=== PATIENT | male | born 1990 | race American Indian/Alaskan Native ===

== ENCOUNTER 2020-06-25 13:13 | Emergency (ER) | payer SELFPAY ==
[2020-06-25 13:28] VITALS: BP 106/70
--- NOTE | 2020-06-25 14:41 | Emergency Department Report ---
ED Male HPI - General Chief complaint: Abdominal Pain Stated complaint: ABD PAIN Time Seen by Provider: 06/25/20 13:57 Source: patient Mode of arrival: Ambulatory Limitations: No Limitations - History of Present Illness Initial comments: Patient is a 29-year-old male presents emergency room with complaints of left testicular pain and swelling that began 3 days ago. He has associated dysuria and some mild lower abdominal discomfort. Patient states that he was sexually active without protection. He states that he went to visit his family in [place] and while he was there he had relations with someone he has had intercourse with in the past. He states that previously this person has given him an STD in the past. He states he previously had gonorrhea/chlamydia and had the same symptoms at that time which caused testicular pain and swelling. He denies any fever, nausea, vomiting, diarrhea, urinary retention, penile discharge, hematuria. No other past medical history. No allergies to medications. - Related Data Previous Rx's Medication Instructions Recorded Last Taken Type Doxycycline Hyclate [Doxycycline 100 mg PO BID 7 Days #14 tablet 06/25/20 Unknown Rx Hyclate TAB] Allergies Allergy/AdvReac Type Severity Reaction Status Date / Time No Known Allergies Allergy Unverified 06/25/20 13:28 ED Review of Systems ROS: Stated complaint: ABD PAIN Other details as noted in HPI Comment: All other systems reviewed and negative ED Past Medical Hx - Past Medical History Previous Medical History?: No - Surgical History Past Surgical History?: No - Social History Smoking Status: Never Smoker Substance Use Type: Alcohol - Medications Home Medications: Home Medications Medication Instructions Recorded Confirmed Last Taken Type Doxycycline Hyclate [Doxycycline 100 mg PO BID 7 Days #14 tablet 06/25/20 Unknown Rx Hyclate TAB] ED Physical Exam - General Limitations: No Limitations General appearance: alert, in no apparent distress - Head Head exam: Present: atraumatic, normocephalic - Eye Eye exam: Present: normal appearance - ENT ENT exam: Present: mucous membranes moist - Respiratory Respiratory exam: Present: normal lung sounds bilaterally. Absent: respiratory distress, wheezes, rales, rhonchi, stridor, chest wall tenderness, accessory muscle use, decreased breath sounds, prolonged expiratory - Cardiovascular Cardiovascular Exam: Present: regular rate, normal rhythm, normal heart sounds. Absent: systolic murmur, diastolic murmur, rubs, gallop - GI/Abdominal GI/Abdominal exam: Present: soft, normal bowel sounds. Absent: distended, tenderness, guarding, rebound, rigid - exam: Present: other (field gauger: adri davis, left sided testicular and epididymal ttp and edema, no lesions or blister, normal cremasteric reflex, normal testicular lie, no high riding of the testicle, left sided inguinal LAD) - Neurological Exam Neurological exam: Present: alert, oriented X3 - Psychiatric Psychiatric exam: Present: normal affect, normal mood - Skin Skin exam: Present: warm, dry, intact ED Course Vital Signs 06/25/20 13:26 Temperature 99.9 F H Pulse Rate 81 Respiratory 18 Rate Blood Pressure 106/70 O2 Sat by Pulse 97 Oximetry ED Medical Decision Making - Medical Decision Making Patient is a 29-year-old male presents emergency room with complaints of left testicular pain and swelling that began 3 days ago. He has associated dysuria and some mild lower abdominal discomfort. Patient states that he was sexually active without protection. He states that he went to visit his family in [place] and while he was there he had relations with someone he has had intercourse with in the past. He states that previously this person has given him an STD in the past. He states he previously had gonorrhea/chlamydia and had the same symptoms at that time which caused testicular pain and swelling. He denies any fever, nausea, vomiting, diarrhea, urinary retention, penile discharge, hematuria. No other past medical history. No allergies to medications. Vitals are stable. On exam:field gauger: adri davis, left sided testicular and epididymal ttp and edema, no lesions or blister, normal cremasteric reflex, normal testicular lie, no high riding of the testicle, left sided inguinal LAD. Examination appears consistent with left-sided epididymoorchitis likely secondary to STD, No signs of testicular torsion, scrotal cellulitis, abscess at this time. Patient given ceftriaxone while in the emergency department, given prescription for doxycycline. Will be referred to urology. Patient be referred to primary care/clinic for full STD panel. Discuss strict return precautions in detail with patient. Advised patient Please take medication as prescribed. Please have any partner tested and treated as well. Avoid sexual intercourse. Please follow- up with the health department or clinic in order to have a full STD panel. Please have any partner tested and treated as well. Return to emergency room for new or worsening symptoms. Critical care attestation.: If time is entered above; I have spent that time in minutes in the direct care of this critically ill patient, excluding procedure time. ED Disposition Clinical Impression: Epididymo-orchitis Disposition: - TO HOME OR SELFCARE Is pt being admited?: No Does the pt Need Aspirin: No Condition: Stable Instructions: Orchitis, Epididymitis, Epididymitis (ED) Additional Instructions: Please take medication as prescribed. Please have any partner tested and treated as well. Avoid sexual intercourse. Please follow-up with the health department or clinic in order to have a full STD panel. Please have any partner tested and treated as well. Return to emergency room for new or worsening symptoms. STD testing walk in clinic: [facility] in [place], [place] Address: [address] [place] [id number] Prescriptions: Doxycycline Hyclate [Doxycycline Hyclate TAB] 100 mg PO BID 7 Days #14 tablet Referrals: DEBI BREWER MD [Staff Physician] - 2-[address] [facility] [Outside] - 2-3 Days Forms: STI Treatment and Prevention Time of Disposition: 15:35 Print Language: CROATIAN
[2020-06-25 15:23] LABS: Bilirubin,Urine NEG (Negative); Blood,Urine NEG (Negative); Color,Urine Amber (Yellow); Mucus,Urine 3+ /HPF
[2020-06-25] MEDS ORDERED: LIDOCAINE-MPF (1%) 10 MG/1 ML VIAL 5 ML INFILTRATI ONE (15:34)
== END 2020-06-25 16:24 | disposition home or self-care (01) ==
LOC: ED 13:13
DX: N45.3 Epididymo-orchitis (principal); Z79.899 Other long term (current) drug therapy
CPT/HCPCS: 81001; 87086; 96372; 99283; J0696

== ENCOUNTER 2020-09-02 19:31 | Emergency (ER) | payer SELFPAY ==
[2020-09-02 20:31] VITALS: BP 112/60
== END 2020-09-02 21:00 | disposition left against medical advice (07) ==
LOC: ED 19:31
DX: N49.2 Inflammatory disorders of scrotum (principal); Z53.21 Procedure and treatment not carried out due to patient leaving prior to being seen by health care provider